=== PATIENT | female | born 1955 | race Caucasian/White ===

== ENCOUNTER 2016-11-23 21:08 | Observation (INO) | payer OTHER ==
--- NOTE | ~2016-11-23 | OR ---
Unit #: [id number] #: [id number] Patient: MIHIR VEE [id number] [address] [address] [id number] Gerardo MR#: [id number] NAME: MIHIR VEE ROOM: [facility] Date of Procedure: 11/24/2016 Admission Date: 11/24/2016 Surgeon: Jason Fields M.D. : 1955 Attending Physician: Jason Fields M.D. OPERATIVE REPORT PREOPERATIVE DIAGNOSIS Cholecystitis. POSTOPERATIVE DIAGNOSIS Cholecystitis. PROCEDURE PERFORMED Laparoscopic cholecystectomy. 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 ANESTHESIA General endotracheal anesthesia. ESTIMATED BLOOD LOSS Minimal. IV FLUIDS 800 crystalloid. COMPLICATIONS None. INDICATIONS FOR PROCEDURE The patient is a 64-year-old with acute cholecystitis. DESCRIPTION OF PROCEDURE The patient was taken to the operative theater and placed in a supine position. General anesthesia was induced. The abdomen was prepped and draped. A 5-mm Optiview trocar was placed in the right upper quadrant without difficulty. The abdomen was insufflated to 15 mmHg with CO2. Under direct vision, I placed a subxiphoid 10 mm, right lateral 5 mm, umbilical 5 mm. General inspection of the abdomen revealed acute cholecystitis with multiple adhesions to the gallbladder and distended swollen gallbladder. The gallbladder was retracted up over the liver. We took down the adhesions and identified the base of the gallbladder. The cystic duct was identified. Its junction with the gallbladder confirmed. It was thus skeletonized, doubly hemoclipped, and divided. The cystic artery laid immediately posterior. This was skeletonized, doubly hemoclipped, and divided. The gallbladder was removed from the gallbladder bed with Bovie electrocautery and delivered via the subxiphoid Unit #: [id number] #: [id number] Patient: MIHIR VEE port. Hemostasis was obtained. I then irrigated with normal saline and aspirate all fluids dry. The ports were removed. The fascia was closed with 0 Vicryl and skin with 4-0 Vicryl. The patient tolerated the procedure well and sent to recovery room in good condition. Dictated by... Shae Devine/khloe TD: 11/25/2016 01:56 JOB #: [id number] OPERATIVE REPORT X Jason Fields MD PROCEDURE OPERATIVE NOTE
--- NOTE | ~2016-11-23 | CR72 ---
[facility] A Service of [facility] RADIOLOGY TEXT RESULTS PATIENT: MIHIR VEE LOCATION: [facility] [id number] : 54 UNIT #: [id number] AGE: [address]: Jason Fields MD SEX: F ORDER DR: [id number] [facility] [address] [place], [place] [address] [id number] MR#: [id number] Acc #: [id number] NAME: MIHIR VEE : 1955 SEX: F STUDY DATE/TIME: 11/23/2016 21:01 UNIT: [facility] ROOM: [facility] STUDY DESCRIPTION: CR Chest Single View Portable Attending Physician: Jason Fields M.D. Ordering Physician: Er Physicians Primary Care Physician: Primary Care Physician No MEDICAL IMAGING REPORT This report is preliminary unless electronic signature is present EXAM Portable chest HISTORY Chest pain today. FINDINGS. The cardiac size and pulmonary vascularity are within normal limits. No infiltrates or effusions. Mild linear atelectasis or scarring in the left base. IMPRESSION: No acute findings Dictated by... Brian Will M.D. THIS IS AN ELECTRONICALLY VERIFIED REPORT Brian Will M.D. at 11/25/2016 12:30 PM DFL/loraine TD: 11/25/2016 07:15 JOB #: [id number] MEDICAL IMAGING REPORT COPY
--- NOTE | ~2016-11-23 | CT2 ---
[facility] A Service of [facility] RADIOLOGY TEXT RESULTS PATIENT: MIHIR VEE LOCATION: [facility] 466 : 54 UNIT #: [id number] AGE: [address]: Jason Fields MD SEX: F ORDER DR: [id number] [facility]. [place], [place] [address] [id number] I MR#: [id number] Acc #: [id number] NAME: MIHIR VEE : 1955 SEX: F STUDY DATE/TIME: 11/23/2016 22:47 UNIT: [facility] ROOM: [facility] STUDY DESCRIPTION: CT Abd and Pelv W Cont Attending Physician: Jason Fields M.D. Ordering Physician: Chintan Dickson M.D. Primary Care Physician: Primary Care Physician No MEDICAL IMAGING REPORT This report is preliminary unless electronic signature is present EXAM ct abdomen and pelvis with contrast, 11/23/2016. HISTORY 61-year-old female in the ED complaining of upper abdomen pain and chest pain beginning about 1 hour prior to arrival. TECHNIQUE CT examination of the abdomen and pelvis with oral and IV contrast. The CT exam was performed with one or more of the following radiation dose reduction techniques: automatic exposure control, adjustment of mA and/or kV according to patient size, and iterative reconstruction. Abdomen Findings Numerous gallstones are visible within a mildly distended, mildly thick-walled gallbladder. Correlate for clinical evidence of acute cholecystitis. There is no significant intrahepatic or extrahepatic bile duct dilatation. No evidence of acute pancreatitis. Liver, pancreas, spleen and kidneys are normal in size and appearance. Small bowel and colon are normal in caliber and appearance, with the exception of mild sigmoid diverticulosis. Surgically absent appendix. Normal-caliber abdominal aorta. Pelvis Findings Hysterectomy (likely supracervical). The bladder and rectum are negative. No inguinal hernia. Limited lung base images show no lack could disease in the lower chest. IMPRESSION [facility] A Service of [facility] RADIOLOGY TEXT RESULTS PATIENT: MIHIR VEE LOCATION: [facility] : 53 UNIT #: [id number] AGE: [address]: Jason Fields MD SEX: F ORDER DR: 1. No cholelithiasis with findings concerning for acute cholecystitis. Numerous large gallstones are present within a mildly distended, diffusely thick-walled gallbladder. 2. No bile duct or pancreatic duct dilatation. No evidence of acute pancreatitis. 3. Mild sigmoid diverticulosis. Surgical absence of the appendix. Dictated by... Peter Horta M.D. THIS IS AN ELECTRONICALLY VERIFIED REPORT Peter Horta M.D. at 11/25/2016 9:53 PM MIRANDA/loraine TD: 11/25/2016 07:28 JOB #: [id number] MEDICAL IMAGING REPORT COPY
--- NOTE | ~2016-11-23 | EKG ---
PATIENT: MIHIR VEE UNIT #: [id number] Ventricular Rate: 85 BPM Atrial Rate: 85 BPM P-R Interval: 136 ms QRS Duration: 92 ms Q-T Interval: 376 ms QTC Calculation(Bezet): 447 ms P [place]: 72 degrees Calculated R [place]: 75 degrees Calculated T [place]: 54 degrees Diagnosis Line: Normal sinus rhythm Diagnosis Line: Nonspecific ST abnormality Diagnosis Line: Otherwise normal ECG Diagnosis Line: No previous ECGs available Diagnosis Line: Confirmed by JANICE CAMACHO MD ([id number]) on 11/25/2016 Diagnosis Line: 7:30:56 AM INTERPRETING MD: DOUG ALANIS
--- NOTE | ~2016-11-23 | CO ---
Unit #: [id number] #: [id number] Patient: MIHIR VEE [id number] [address] [address] [id number] I MR#: [id number] NAME: MIHIR VEE ROOM: [facility] Age: 61 Sex: F Admission Date: 11/24/2016 : 1955 Attending Physician: Jason Fields M.D. Consultation Date: 11/24/2016 CONSULTATION REPORT BRIEF HISTORY The patient is a 61-year-old lady with acute onset of right upper quadrant epigastric abdominal pain, some episodes of nausea, vomiting. No diarrhea. No fevers. No chills. No history of similar type pain. PAST MEDICAL HISTORY Appendectomy, hysterectomy, ovarian cyst. She has no chronic medical problems. MEDICATIONS Estradiol, Claritin. SOCIAL HISTORY No smoking. No alcohol. FAMILY HISTORY Negative for GI malignancy. REVIEW OF SYSTEMS No cardiopulmonary complaints at this time. Else, 10 systems reviewed and negative. PHYSICAL EXAMINATION GENERAL: She is awake, alert, appropriate. VITAL SIGNS: Currently, afebrile. HEENT: Unremarkable. NECK: Supple. No JVD. Trachea midline. LUNGS: Clear to auscultation. Bilateral breath sounds symmetric. CARDIOVASCULAR: Regular rate and rhythm. ABDOMEN: Soft. It is currently nontender and nondistended. I palpated no masses. No hepatosplenomegaly. EXTREMITIES: No clubbing, cyanosis, or edema. DIAGNOSTIC STUDIES LABORATORY RESULTS: Show normal white count. Liver function studies are normal. IMAGING STUDIES: CT scan shows gallstones with pericholecystic edema. Normal ducts. ASSESSMENT Likely symptomatic cholelithiasis versus acute cholecystitis. PLAN Unit #: [id number] #: [id number] Patient: MIHIR VEE Recommend IV fluids and antibiotics. We will plan for laparoscopic cholecystectomy. Discussed in detail the risks and benefits, and we will proceed. Dictated by... Shae Devine/khloe TD: 11/24/2016 23:31 JOB #: [id number] CONSULTATION REPORT X Jason Fields MD X CONSULTATION REPORT
[2016-11-23 21:28] LABS: BASOPHIL% 0.3 % (0-2.5); EOSINOPHIL# 0.1 X10e3 (0-0.7); EOSINOPHIL% 2.4 % (0.0-7.0); HEMATOCRIT 35.7 % (35.0-45.0); HEMOGLOBIN 11.8 gm/dL (12.0-16.0); LYMPHOCYTE# 1.4 X10e3 (1.0-3.5); LYMPHOCYTE% 27.2 % (17.0-45.0); MEAN CELL VOLUME 86.1 FL (83-96); MEAN CORPUSCULAR HEMOGLOBIN 28.5 PG (28-34); MEAN CORPUSCULAR HGB CONC 33.1 g/dL (30-36); MEAN PLATELET VOLUME 7.8 FL (6.5-11.5); MONOCYTE# 0.3 X10e3 (0-1.0); MONOCYTE% 6.4 % (3.0-12.0); NEUTROPHIL# 3.3 X10e3 (1.5-7.1); NEUTROPHIL% 63.7 % (40-75); PLATELET COUNT 179 X10e3 (140-420); RED BLOOD COUNT 4.14 X10e (3.90-5.30); RED CELL DISTRIBUTION WIDTH 13.1 % (11.0-15.5); WHITE BLOOD COUNT 5.2 X10e3 (4.0-10.5)
[2016-11-23 21:33] LABS: DIFF IND NO
[2016-11-23 21:37] LABS: POC - CKMB <1.0 ng/mL (0.0-7.9); POC - TROPONIN <0.05 ng/mL (<=0.05)
[2016-11-23 22:13] LABS: ALBUMIN SERUM 3.8 g/dL (3.5-5.0); ALKALINE PHOSPHATASE 64 U/L (32-92); ALT (SGPT) 31 U/L (10-40); AST (SGOT) 39 U/L (10-42); BILIRUBIN, DIRECT 0.2 mg/dL (0.0-0.2); BILIRUBIN,INDIRECT 0.3 mg/dL (0.0-0.9); BILIRUBIN,TOTAL 0.5 mg/dL (0.2-2.0); BLOOD UREA NITROGEN 15 mg/dL (9-23); CALCIUM SERUM 8.4 mg/dL (8.4-10.2); CARBON DIOXIDE 25 mmol/L (22-31); CHLORIDE 102 mmol/L (100-111); CREATININE SERUM 0.6 mg/dL (0.6-1.4); GLOM FILT RATE Estimated ABOVE60 mL/min (>60); GLUCOSE FASTING 129 mg/dL (70-110); LIPASE 19 U/L (22-51); POTASSIUM 3.4 mmol/L (3.5-5.1); PROTEIN TOTAL SERUM 6.5 g/dL (6.0-8.3); SODIUM 132 mmol/L (135-145)
[2016-11-23 23:00] LABS: POC - CKMB <1.0 ng/mL (0.0-7.9); POC - TROPONIN <0.05 ng/mL (<=0.05)
[2016-11-25 03:31] LABS: BASOPHIL% 0.2 % (0-2.5); EOSINOPHIL% 0.6 % (0.0-7.0); HEMATOCRIT 35.5 % (35.0-45.0); HEMOGLOBIN 11.4 gm/dL (12.0-16.0); LYMPHOCYTE# 1.7 X10e3 (1.0-3.5); LYMPHOCYTE% 23.3 % (17.0-45.0); MEAN CELL VOLUME 87.1 FL (83-96); MEAN CORPUSCULAR HGB CONC 32.2 g/dL (30-36); MEAN PLATELET VOLUME 7.8 FL (6.5-11.5); MONOCYTE# 0.5 X10e3 (0-1.0); MONOCYTE% 6.9 % (3.0-12.0); NEUTROPHIL# 5.2 X10e3 (1.5-7.1); PLATELET COUNT 201 X10e3 (140-420); RED BLOOD COUNT 4.08 X10e (3.90-5.30); RED CELL DISTRIBUTION WIDTH 12.9 % (11.0-15.5); WHITE BLOOD COUNT 7.5 X10e3 (4.0-10.5)
[2016-11-25 03:33] LABS: DIFF IND NO
[2016-11-25] MEDS ORDERED: PHENERGAN25 MG PO (07:41)
[2016-11-25] MEDS ORDERED: TYLENOL325 M1 PO (07:41)
[2016-11-25] MEDS ORDERED: LORTAB 5-325 M1 EACH PO (07:42)
[2016-11-25] MEDS ORDERED: MILK OF MAGNESIA PO (07:44)
== END 2016-11-25 08:55 | disposition home or self-care (01) | DRG 446 ==
LOC: CED 21:08 → CEDOF 11-24 → C4C 11-24 10:50
PROVIDERS: Emergency Medicine; Surgery
DX: K80.10 Calculus of gallbladder with chronic cholecystitis without obstruction (principal); K57.30 Diverticulosis of large intestine without perforation or abscess without bleeding; Z88.0 Allergy status to penicillin; Z90.710 Acquired absence of both cervix and uterus
CPT/HCPCS: 36415; 71010; 74177; 80048; 80076; 82553; 83690; 84484; 85025; 88304; 93005; 96374; 96375; 96376; 99285; G0378; J0330; J1100; J1644; J1885; J1956; J2250; J2270; J2310; J2405; J3010; Q9967